=== PATIENT | female | born 1980 | race Caucasian/White ===

== ENCOUNTER 2023-02-28 18:38 | Emergency (ER) | payer SELFPAY ==
[~2023-02-28] VITALS: Ht 167.6 cm; Wt 68.0 kg
[2023-02-28 18:45] VITALS: BP 125/74; PULSE 88; RESP 16; TEMP 98; O2SAT 98
[2023-02-28] MEDS ORDERED: KETOROLAC 30 MG/ML VIAL IM ONE (18:55)
[2023-02-28] MEDS ORDERED: NAPR-1704 PO (19:41)
[2023-02-28] MEDS ORDERED: LID5T TP (19:41)
[2023-02-28 20:50] VITALS: BP 125/74; PULSE 88; RESP 16; TEMP 98; O2SAT 98
[2023-03-01] MEDS ORDERED: LID5T TP (10:30)
[2023-03-01] MEDS ORDERED: NAPR-1704 PO (10:30)
== END 2023-02-28 20:50 | disposition home or self-care (01) ==
LOC: MED 18:38
DX: S22.41XA Multiple fractures of ribs, right side, initial encounter for closed fracture (principal); W18.30XA Fall on same level, unspecified, initial encounter; Y93.89 Activity, other specified; Y92.89 Other specified places as the place of occurrence of the external cause; Y99.8 Other external cause status
CPT/HCPCS: 71101; 96372; 99283; J1885